=== PATIENT | male | born 1950 | race Caucasian/White ===

== ENCOUNTER 2016-09-21 19:52 | Emergency (ER) | payer MEDICARE, MEDICAID ==
[2016-09-21 21:41] LABS: Hematocrit 28.2 % (35.5-45.6); Hemoglobin 8.8 gm/dl (11.8-15.2); Mean Corpuscular HGB Conc 31 % (32-34); Mean Corpuscular Volume 71 fl (84-94); Platelet Count 207 K/mm3 (140-440); Red Blood Count 3.97 M/mm3 (3.65-5.03)
[2016-09-21 21:44] LABS: Mean Corpuscular Hemoglobin 22 pg (28-32); Red Cell Distribution Width 27.2 % (13.2-15.2)
[2016-09-21 22:03] LABS: Blood Urea Nitrogen 14 mg/dL (9-20); Calcium 8.9 mg/dL (8.4-10.2); Carbon Dioxide 23 mmol/L (22-30); Glucose 122 mg/dL (75-100)
[2016-09-21 22:04] LABS: Chloride 103.5 mmol/L (98-107); Sodium 140 mmol/L (137-145)
[2016-09-21 22:15] LABS: Anion Gap 18 mmol/L
[2016-09-22] MEDS ORDERED: NORCO 5/325 PO ONE (08:49)
--- NOTE | 2016-09-22 08:59 | Emergency Department Report ---
HPI - General Chief Complaint: Medical Clearance Time Seen by Provider: 09/22/16 08:42 - HPI HPI: Room 3 The patient is a 66-year-old male presenting with a chief complaint of right foot pain. Has a history of gout and states for the past 3 days she has had pain in his right foot mostly at the base of the great toe radiating to the dorsum of the foot. Patient denies any preceding trauma. Patient denies any history of fever. The patient was reportedly brought in from outpatient rehabilitation facility by his reinforcing iron worker helper stated that they wanted him as an inpatient at [facility]. The patient states he usually drank approximately one sixpack of beer daily and his last consumption occurred approximately 3 weeks ago. The patient states he simply wants something for his right foot pain and to go home. Patient denies suicidal or homicidal ideation. Patient denies visual or auditory hallucination Location: [see above] Duration: 3 days Quality: Pain Severity: Moderate Modifying factors: [see above] Context: [see above] Mode of transportation: [not driving] ED Past Medical Hx - Past Medical History Previous Medical History?: Yes Hx Hypertension: Yes Hx Psychiatric Treatment: Yes (depression) Additional medical history: alcoholism - Surgical History Past Surgical History?: No - Family History Family history: no significant - Social History Smoking Status: Never Smoker Substance Use Type: Alcohol (6 pack of beer daily. Last consumption 3 weeks ago ) - Medications Home Medications: Home Medications Medication Instructions Recorded Confirmed Last Taken Type HYDROcodone/APAP 5-325 [[place] 1 - 2 each PO Q6HR PRN #14 tablet 09/22/16 Unknown Rx 5/325] Ibuprofen [Motrin 800 MG tab] 800 mg PO Q8HR PRN #20 tablet 09/22/16 Unknown Rx ED Review of Systems ROS: Stated complaint: RT FOOT PAIN, ALCOHOL WITHDRAWALS Other details as noted in HPI Comment: All other systems reviewed and negative Constitutional: denies: chills, fever Eyes: denies: eye pain, eye discharge, vision change ENT: denies: ear pain, throat pain Respiratory: denies: cough, shortness of breath, wheezing Cardiovascular: denies: chest pain, palpitations Endocrine: no symptoms reported Gastrointestinal: denies: abdominal pain, nausea, diarrhea Genitourinary: denies: urgency, dysuria Musculoskeletal: arthralgia Skin: denies: rash, lesions Neurological: denies: headache, weakness, paresthesias Psychiatric: denies: anxiety, depression Hematological/Lymphatic: denies: easy bleeding, easy bruising Physical Exam - Physical Exam Vital Signs: Vital Signs 09/21/16 09/22/16 09/22/16 20:40 08:42 08:44 Temperature 97.5 F L Pulse Rate 100 H 78 Respiratory 20 20 20 Rate Blood Pressure 123/70 127/70 [Right] O2 Sat by Pulse 100 98 98 Oximetry Physical Exam: GENERAL: The patient is well-developed well-nourished male lying on stretcher not appearing to be in acute distress. [] HEENT: Normocephalic. Atraumatic. Extraocular motions are intact. Patient has moist mucous membranes. NECK: Supple. No meningitic signs are noted. There is no adenopathy noted. CHEST/LUNGS: Clear to auscultation. There is no respiratory distress noted. HEART/CARDIOVASCULAR: Regular. There is no tachycardia. There is no gallop rub or murmur. ABDOMEN: Abdomen is soft, nontender. Patient has normal bowel sounds. There is no abdominal distention. SKIN: There is no rash. There is no edema. There is no diaphoresis. NEURO: The patient is awake, alert, and oriented. The patient is cooperative. There is no tremulousness noted. The patient has normal speech MUSCULOSKELETAL: There is no evidence of acute injury. ED Course Vital Signs 09/21/16 09/22/16 09/22/16 20:40 08:42 08:44 Temperature 97.5 F L Pulse Rate 100 H 78 Respiratory 20 20 20 Rate Blood Pressure 123/70 127/70 [Right] O2 Sat by Pulse 100 98 98 Oximetry - Reevaluation(s) Reevaluation #1: 09/22/16 11:16 Patient stated he does not wish to seek inpatient alcohol detox. center consultant states patient does not meet inpatient criteria and recommends he follows up with his reinforcing iron worker helper ED Medical Decision Making - Lab Data Result diagrams: 09/21/16 21:20 09/21/16 21:20 Laboratory Tests 09/21/16 09/21/16 21:20 21:20 WBC 10.0 RBC 3.97 Hgb 8.8 L Hct 28.2 L MCV 71 L MCH 22 L MCHC 31 L RDW 27.2 H Plt Count 207 Sodium 140 Potassium 4.0 Chloride 103.5 Carbon Dioxide 23 Anion Gap 18 BUN 14 Creatinine 1.0 Estimated GFR > 60 BUN/Creatinine Ratio 14.00 Glucose 122 H Calcium 8.9 - Radiology Data Radiology results: image reviewed (right foot x-ray) interpreted by me: Right foot x-ray-no definite fractures. No foreign body seen - Differential Diagnosis gout, alcoholism Critical care attestation.: If time is entered above; I have spent that time in minutes in the direct care of this critically ill patient, excluding procedure time. ED Disposition Clinical Impression: Gout, Alcoholism Disposition: DISCHARGED TO HOME OR SELFCARE Is pt being admited?: No Does the pt Need Aspirin: No Condition: Stable Instructions: Acute Gouty Arthritis (ED) Additional Instructions: Return to the emergency department immediately should you develop worsening symptoms, fever, inability to tolerate food or liquid or any other concerns. Prescriptions: HYDROcodone/APAP 5-325 [[place] 5/325] 1 - 2 each PO Q6HR PRN #14 tablet PRN Reason: Pain Ibuprofen [Motrin 800 MG tab] 800 mg PO Q8HR PRN #20 tablet PRN Reason: Pain Referrals: PRIMARY CARE, [Primary Care Provider] - 3-5 Days PAULINA BOUCHER MD [Staff Physician] - 3-5 Days (Dr Boucher is an orthopedic surgeon. Please follow up with him for further evaluation) Time of Disposition: 11:16
[2016-09-22 10:03] LABS: Urine Drugs of Abuse Note Disclamer
[2016-09-22 10:30] LABS: Bilirubin,Urine NEG (Negative); Blood,Urine NEG (Negative); Ketones,Urine NEG (Negative); Leukocyte Esterase,Urine LG (Negative); Mucus,Urine 3+ /HPF; Nitrite,Urine POS (Negative); Urobilinogen,Urine < 2.0 mg/dL (<2.0)
[2016-09-22 10:32] LABS: WBC,Urine > 182.0 /HPF (0.0-6.0)
--- NOTE | 2016-09-22 10:51 | XRay Report ---
RIGHT FOOT, 2 VIEWS: HISTORY: Right foot pain. FINDINGS: There is mild diffuse soft tissue swelling. Bone mineralization is borderline. There are moderate osteoarthritic changes at the first metatarsophalangeal joint. Mild degenerative changes in the midfoot. No fracture, malalignment or bony erosions. Small plantar spur. IMPRESSION: Soft tissue swelling. Degenerative findings, as described. No acute process.
[2016-09-22 11:20] VITALS: BP 151/71
[2016-09-22] MEDS ORDERED: MOTRIN ONE (12:12)
[2016-09-22] MEDS ORDERED: MOTRIN PO ONE (12:23)
== END 2016-09-22 12:27 | disposition home or self-care (01) ==
LOC: ED 19:52
DX: M10.9 Gout, unspecified (principal); F10.20 Alcohol dependence, uncomplicated; I10 Essential (primary) hypertension; F32.9 Major depressive disorder, single episode, unspecified
CPT/HCPCS: 36415; 80048; 80307; 81001; 85027; 99284

== ENCOUNTER 2017-03-08 18:29 | Emergency (ER) | payer MEDICARE, MEDICAID ==
--- NOTE | 2017-03-09 02:46 | Emergency Department Report ---
HPI - General Chief Complaint: Extremity Injury, Upper Time Seen by Provider: 03/09/17 02:27 - HPI HPI: Room 6 The patient is a 66-year-old male presenting with a chief complaint of left arm pain. Patient states his symptoms began yesterday with pain in the left tricep. Patient denies any preceding trauma. Patient denies chest pain, shortness of breath nausea or vomiting. Patient admits to consuming alcohol. The patient's alcohol level in the ED is 0.31 Location: Left arm Duration: One day Quality: Pain Severity: Moderate Modifying factors: Movement increases pain Context: [see above] Mode of transportation: [not driving] ED Past Medical Hx - Past Medical History Hx Hypertension: Yes Hx Psychiatric Treatment: Yes (depression) Additional medical history: alcoholism - Surgical History Past Surgical History?: No - Family History Family history: no significant - Social History Smoking Status: Current Every Day Smoker Substance Use Type: None (denies illicit drug use), Alcohol - Medications Home Medications: Home Medications Medication Instructions Recorded Confirmed Last Taken Type HYDROcodone/APAP 5-325 [[place] 1 - 2 each PO Q6HR PRN #14 tablet 09/22/16 Unknown Rx 5/325] Ibuprofen [Motrin 800 MG tab] 800 mg PO Q8HR PRN #20 tablet 09/22/16 Unknown Rx Ibuprofen [Motrin 800 MG tab] 800 mg PO Q8HR PRN #20 tablet 03/09/17 Unknown Rx traMADol [Ultram] 50 mg PO Q6HR PRN #14 tablet 03/09/17 Unknown Rx ED Review of Systems ROS: Stated complaint: INTOXICATION Other details as noted in HPI Comment: All other systems reviewed and negative Constitutional: denies: chills, fever Eyes: denies: eye pain, eye discharge, vision change ENT: denies: ear pain, throat pain Respiratory: denies: cough, shortness of breath, wheezing Cardiovascular: denies: chest pain, palpitations Endocrine: no symptoms reported Gastrointestinal: denies: abdominal pain, nausea, diarrhea Genitourinary: denies: urgency, dysuria Musculoskeletal: myalgia Skin: denies: rash, lesions Neurological: denies: headache, weakness, paresthesias Psychiatric: denies: anxiety, depression Hematological/Lymphatic: denies: easy bleeding, easy bruising Physical Exam - Physical Exam Vital Signs: Vital Signs 03/08/17 03/09/17 19:18 00:41 Temperature 97.8 F 98.2 F Pulse Rate 92 H 83 Respiratory 16 14 Rate Blood Pressure 155/83 Blood Pressure 140/85 [Left] O2 Sat by Pulse 96 97 Oximetry Physical Exam: GENERAL: The patient is well-developed well-nourished male sleeping on stretcher not appearing to be in acute distress. [] HEENT: Normocephalic. Atraumatic. Extraocular motions are intact. Patient has moist mucous membranes. NECK: Supple. Trachea midline CHEST/LUNGS: Clear to auscultation. There is no respiratory distress noted. HEART/CARDIOVASCULAR: Regular. There is no tachycardia. There is no gallop rub or murmur. 2+ radial pulse on the left ABDOMEN: Abdomen is soft, nontender. Patient has normal bowel sounds. There is no abdominal distention. SKIN: There is no rash. There is no edema. There is no diaphoresis. NEURO: The patient is awake, alert, and oriented. The patient is cooperative. The patient has no focal neurologic deficits. The patient has normal speech. Left cheese factory worker 5+/5 MUSCULOSKELETAL: There is tenderness to palpation of the left tricep. There is limitation of range of motion of the left shoulder. There is no evidence of acute injury. ED Course Vital Signs 03/08/17 03/09/17 19:18 00:41 Temperature 97.8 F 98.2 F Pulse Rate 92 H 83 Respiratory 16 14 Rate Blood Pressure 155/83 Blood Pressure 140/85 [Left] O2 Sat by Pulse 96 97 Oximetry ED Medical Decision Making - Lab Data Result diagrams: 03/09/17 03:27 Laboratory Tests 03/08/17 03/09/17 03/09/17 19:29 03:27 03:27 WBC 8.7 RBC 4.59 Hgb 9.6 L Hct 32.0 L MCV 70 L MCH 21 L MCHC 30 L RDW 27.9 H Plt Count 257 Add Manual Diff Complete Total Counted 100 Seg Neuts % (Manual) 48.0 Band Neutrophils % 0 Lymphocytes % (Manual) 41.0 H Reactive Lymphs % (Man) 0 Monocytes % (Manual) 9.0 H Eosinophils % (Manual) 0 Basophils % (Manual) 0 Metamyelocytes % 1.0 Myelocytes % 1.0 Promyelocytes % 0 Blast Cells % 0 Nucleated RBC % Not Reportable Seg Neutrophils # Man 4.2 Band Neutrophils # 0.0 Lymphocytes # (Manual) 3.6 Abs React Lymphs (Man) 0.0 Monocytes # (Manual) 0.8 Eosinophils # (Manual) 0.0 Basophils # (Manual) 0.0 Metamyelocytes # 0.1 Myelocytes # 0.1 Promyelocytes # 0.0 Blast Cells # 0.0 WBC Morphology Not Reportable Hypersegmented Neuts Not Reportable Hyposegmented Neuts Not Reportable Hypogranular Neuts Not Reportable Smudge Cells Not Reportable Toxic Granulation Not Reportable Toxic Vacuolation Not Reportable Dohle Bodies Not Reportable Pelger-Huet Anomaly Not Reportable Praveen Rods Not Reportable Platelet Estimate Consistent w auto Clumped Platelets Not Reportable Plt Clumps, EDTA Not Reportable Large Platelets Not Reportable Giant Platelets Not Reportable Platelet Satelliting Not Reportable Plt Morphology Comment Not Reportable RBC Morphology Not Reportable Dimorphic RBCs Not Reportable Polychromasia Not Reportable Hypochromasia 2+ Poikilocytosis Not Reportable Anisocytosis 3+ Microcytosis 1+ Macrocytosis Not Reportable Spherocytes Not Reportable Pappenheimer Bodies Not Reportable Sickle Cells Not Reportable Target Cells 1+ Tear Drop Cells Not Reportable Ovalocytes Not Reportable Helmet Cells Not Reportable Jordan-Bellaire Bodies Not Reportable [place] Rings Not Reportable Alexandra Cells Not Reportable Bite Cells Not Reportable Crenated Cell Not Reportable Elliptocytes Not Reportable Acanthocytes (Spur) Not Reportable Rouleaux Not Reportable Hemoglobin C Crystals Not Reportable Schistocytes Not Reportable Malaria parasites Not Reportable Carlos Bodies Not Reportable Hem Pathologist Commnt No Total Creatine Kinase 610 H CK-MB (CK-2) 2.7 CK-MB (CK-2) Rel Index 0.4 Troponin T 0.022 Plasma/Serum Alcohol 0.31 H - EKG Data -: EKG Interpreted by Me EKG shows normal: sinus rhythm Rate: normal - EKG Data When compared to previous EKG there are: previous EKG unavailable Interpretation: other (no ischemic changes seen) - Radiology Data Radiology results: image reviewed (left humerus x-ray, left forearm x-ray) interpreted by me: Left humerus x-ray-no acute fracture Left forearm x-ray-no acute fracture - Differential Diagnosis rotator cuff injury, humerus fracture, alcoholism, ACS Critical care attestation.: If time is entered above; I have spent that time in minutes in the direct care of this critically ill patient, excluding procedure time. ED Disposition Clinical Impression: Left arm pain, Alcohol intoxication Disposition: TO HOME OR SELFCARE Is pt being admited?: No Does the pt Need Aspirin: No Condition: Stable Instructions: Rotator Cuff Injury (ED) Additional Instructions: Return to the emergency department immediately should you develop worsening symptoms, fever, inability to tolerate food or liquid or any other concerns. Prescriptions: Ibuprofen [Motrin 800 MG tab] 800 mg PO Q8HR PRN #20 tablet PRN Reason: Pain traMADol [Ultram] 50 mg PO Q6HR PRN #14 tablet PRN Reason: Pain Referrals: PRIMARY CARE, [Primary Care Provider] - 3-5 Days TORRES GE MD [Staff Physician] - 3-5 Days (Dr. Ge is an orthopedic surgeon. Please follow up with him for further evaluation) Time of Disposition: 05:39 (d/c to family or when etoh < 0.08)
[2017-03-09 02:48] VITALS: BP 142/80
[2017-03-09] MEDS ORDERED: VITAMIN B-1 100 MG, FOLVITE 1 MG, INFUVITE 10 ML, MAGNESIUM SULFATE 2 GM in NACL 0.9% 1... IV ONE (02:48)
[2017-03-09 04:01] LABS: Mean Corpuscular HGB Conc 30 % (32-34); Platelet Count 257 K/mm3 (140-440); Red Blood Count 4.59 M/mm3 (3.65-5.03); White Blood Count 8.7 K/mm3 (4.5-11.0)
[2017-03-09 04:30] LABS: Mean Corpuscular Hemoglobin 21 pg (28-32); Mean Corpuscular Volume 70 fl (84-94); Red Cell Distribution Width 27.9 % (13.2-15.2)
[2017-03-09 04:31] LABS: Hemoglobin 9.6 gm/dl (11.8-15.2)
[2017-03-09 05:10] LABS: Blastocytes % (Manual) 0 %
[2017-03-09 05:11] LABS: Anisocytosis 3+; Basophils % (Manual) 0 % (0.0-1.8); Eosinophils % (Manual) 0 % (0.0-4.3); Hypochromasia 2+; Microcytosis 1+
[2017-03-09 05:14] LABS: Diff Status Complete; Platelet Estimate Consistent w Auto; Target Cells 1+
[2017-03-09 05:16] LABS: Creatine Kinase MB 2.7 ng/mL (0.0-4.0)
--- NOTE | 2017-03-09 08:47 | XRay Report ---
LEFT FOREARM: History: Left arm pain after fall. Slightly limited nonstandard views. There is no evidence for fracture or dislocation. Mild osteopenia is suspected. No joint pathology is identified. Anterior soft tissue swelling is suspected. IMPRESSION: Soft tissue swelling. Osteopenia. No acute bony injury is appreciated.
--- NOTE | 2017-03-09 08:48 | XRay Report ---
LEFT HUMERUS: History: Left arm pain after fall. Slightly limited nonstandard views. Osteopenia is suspected. No obvious bony abnormality or acute injury. The soft tissues are unremarkable. IMPRESSION: Osteopenia. No acute osseous injury detected.
== END 2017-03-09 07:35 | disposition home or self-care (01) ==
LOC: ED 18:29
DX: M79.602 Pain in left arm (principal); F10.120 Alcohol abuse with intoxication, uncomplicated; I10 Essential (primary) hypertension; F32.9 Major depressive disorder, single episode, unspecified; F17.210 Nicotine dependence, cigarettes, uncomplicated
CPT/HCPCS: 36415; 73060; 73090; 82550; 82553; 84484; 85007; 85025; 93005; 93010; 96365; 96366; 99285; G0480; J3411; J3475; J7030; 80320

== ENCOUNTER 2017-08-03 10:23 | Outpatient (CLI) | payer MEDICARE ==
[2017-08-03 11:22] LABS: Hematocrit 35.9 % (35.5-45.6); Hemoglobin 10.9 gm/dl (11.8-15.2); Mean Corpuscular HGB Conc 30 % (32-34); Mean Corpuscular Hemoglobin 22 pg (28-32); Mean Corpuscular Volume 72 fl (84-94); Platelet Count 252 K/mm3 (140-440); Red Blood Count 4.98 M/mm3 (3.65-5.03); Red Cell Distribution Width 25.6 % (13.2-15.2); White Blood Count 6.3 K/mm3 (4.5-11.0)
[2017-08-03 11:40] LABS: Bacteria,Urine 1+ /HPF (Negative); Bilirubin,Urine NEG (Negative); Blood,Urine NEG (Negative); Ketones,Urine NEG (Negative); Leukocyte Esterase,Urine MOD (Negative); Mucus,Urine 2+ /HPF; Nitrite,Urine POS (Negative); Urobilinogen,Urine < 2.0 mg/dL (<2.0)
[2017-08-03 11:54] LABS: Alanine Aminotransferase 13 units/L (7-56); Albumin 3.9 g/dL (3.9-5); Albumin/Globulin Ratio 1.1 %; Alkaline Phosphatase 65 units/L (35-129); Anion Gap 21 mmol/L; BUN/Creatinine Ratio 14; Blood Urea Nitrogen 15 mg/dL (9-20); Calcium 8.9 mg/dL (8.4-10.2); Carbon Dioxide 22 mmol/L (22-30); Chloride 98.1 mmol/L (98-107); Cholesterol 192 mg/dL (50-199); Glucose 106 mg/dL (75-100); HDL Cholesterol 65 mg/dL (40-59); LDL Cholesterol,Direct 98 mg/dL (50-130); Potassium 3.8 mmol/L (3.6-5.0); Sodium 137 mmol/L (137-145); Total Protein 7.3 g/dL (6.3-8.2); Triglycerides 145 mg/dL (2-149)
[2017-08-03 12:00] LABS: Prostate Specific Antigen 3.64 ng/mL (0.00-4.00)
[2017-08-03 12:06] LABS: HIV-1 Antigen p24 Non React (Non React); HIVR-1/2 Ab Non React (Non React)
[2017-08-03 12:35] LABS: Basophils % (Manual) 0 % (0.0-1.8); Blastocytes % (Manual) 0 %; Eosinophils % (Manual) 0 % (0.0-4.3)
[2017-08-03 12:36] LABS: Anisocytosis 2+; Hypochromasia 2+; Polychromasia Few; Target Cells Few; Tear Drop Cells Rare
[2017-08-03 12:37] LABS: Diff Status Complete; Ovalocytes Few; Poikilocytosis 1+
[2017-08-16 13:26] LABS: Vitamin D, 25-OH, Total 10 ng/mL (30-100)
== END 2017-08-03 10:24 | disposition home or self-care (01) ==
LOC: LAB 10:23
DX: Z11.3 Encounter for screening for infections with a predominantly sexual mode of transmission (principal); M10.9 Gout, unspecified; F32.9 Major depressive disorder, single episode, unspecified; N50.89 Other specified disorders of the male genital organs; E55.9 Vitamin D deficiency, unspecified; R63.5 Abnormal weight gain; H15.89 Other disorders of sclera; Z68.30 Body mass index [BMI] 30.0-30.9, adult; Z79.899 Other long term (current) drug therapy
CPT/HCPCS: 36415; 80053; 80061; 80074; 81001; 82306; 82607; 82728; 82747; 84153; 84439; 84443; 85007; 85025; 86592; 87529; 87591; 87806

== ENCOUNTER 2017-10-13 09:38 | Outpatient (CLI) | payer MEDICARE ==
--- NOTE | 2017-10-13 14:55 | Ultrasound Report ---
ULTRASOUND TESTICULAR DOPPLER COMPLETE History: Inflammatory disorder male organs. Technique: Trans-scrotal ultrasound with spectral doppler interrogation. Findings: There is mild nonspecific scrotal skin thickening on the right side. No abscess or soft tissue gas is detected. Both testes and epididymides are normal size, contour and echotexture. No hydrocele or varicocele. No mass or pathologic calcifications. Doppler interrogation depicts symmetric arterial flow to both testes. IMPRESSION: Right scrotal skin thickening of uncertain etiology. This may represent a cellulitis. No abscess is visualized. Please correlate with the patient's clinical presentation. Testes and epididymides are within normal limits.
--- NOTE | 2017-10-13 15:00 | Cat Scan Report ---
CT ABDOMEN PELVIS WITHOUT CONTRAST: HISTORY: Inflammatory disorders of marrow organs. COMPARISON: none. TECHNIQUE: Helical CT in 1.25mm intervals without IV contrast. Sagittal and coronal reconstructions. FINDINGS: Lung bases: Normal. Liver: Normal. Biliary system: Normal. Pancreas: There are a few scattered calcifications in the pancreatic head consistent with mild chronic pancreatitis. The remainder of the pancreas is within normal limits. Spleen: Normal. Kidneys/ureters/bladder: Both kidneys are normal size, contour and position. A 1 cm calcification is identified in the mid left kidney. This appears to represent wall calcifications are associated with a small cyst. No definite nephrolithiasis. No mass. The ureters and bladder are unremarkable. Adrenal glands: 2 cm low density left adrenal mass is identified consistent with an adenoma. The right adrenal gland is normal. Aorta: Mild calcifications. No aneurysm. Intestines: There is a large right inguinal hernia containing multiple distal small bowel loops, ileocecal valve, appendix and cecum. The hernia sac measures up to 10 cm in diameter. There is no evidence for inflammation or bowel obstruction. The remaining bowel loops are unremarkable given no oral contrast was administered. Appendix: Normal. Moderate thoracolumbar spondylosis is noted. No fracture or suspicious bony lesion Ascites: None. Adenopathy: None. Musculoskeletal: Normal. IMPRESSION: Large right inguinal hernia containing multiple small bowel loops. No evidence for obstruction or inflammation. Oddly, this large hernia was not identified on ultrasound performed same day. Mild chronic pancreatitis findings. Probable calcified left renal cyst.
== END 2017-10-13 09:39 | disposition home or self-care (01) ==
LOC: US 09:38
PROVIDERS: ATTEND Urology
DX: N49.8 Inflammatory disorders of other specified male genital organs (principal); K86.1 Other chronic pancreatitis; K40.90 Unilateral inguinal hernia, without obstruction or gangrene, not specified as recurrent; N28.89 Other specified disorders of kidney and ureter; E27.8 Other specified disorders of adrenal gland; M47.895 Other spondylosis, thoracolumbar region
CPT/HCPCS: 74176; 93975

== ENCOUNTER 2017-11-03 09:06 | Day surgery (SDC) | payer MEDICARE ==
[2017-11-03] MEDS ORDERED: NACL 0.9% 1000 ML 1,000 ML IV SCH (10:00)
[2017-11-03] MEDS ORDERED: DIPRIVAN 10 MG/ML IV ONE ×2 (11:28)
[2017-11-03] MEDS ORDERED: WATER FOR IRRIG STERILE ONE (11:29)
[2017-11-03] MEDS ORDERED: WATER FOR IRRIG STERILE IR ONE (11:29)
[2017-11-03] MEDS ORDERED: ZOFRAN ONE (11:30)
--- NOTE | 2017-11-03 11:57 | Post Operative Note ---
Pre-op diagnosis: screening colonoscopy Post-op diagnosis: other (multiple polyps (largest ~4 cm) removed, diverticulosis) Findings: Multiple colon polyps removed, diverticulosis, hemorrhoids Procedure: Colonoscopy with hot snare polypectomy Anesthesia: MAC Surgeon: TIFFANY SAUCEDO Estimated blood loss: minimal Pathology: list (Jar A - cecal polyp, Jar B - proximal sigmoid polyp, Jar C - distal sigmoid polyp) Specimen disposition: to lab Condition: stable Disposition: same day
--- NOTE | 2017-11-03 12:04 | Operative Report ---
Operative Report Operative Report: Colonoscopy Procedure Note with Snare Polypectomy Date of procedure: 11/03/2017 Pre-op diagnosis/indication: screening colonoscopy Post-op diagnosis: Multiple colon polyps (3) removed, diverticulosis, hemorrhoids MEDICATIONS: MAC COMPLICATIONS: No immediate complications ESTIMATED BLOOD LOSS: minimal DESCRIPTION OF PROCEDURE: After consent was obtained, the patient was placed in the left lateral decubitis position. The fujinon colonoscope was inserted into the rectum under direct vision, and advanced to the cecum without difficulty. The quality of prep was fair. The patient tolerated the procedure well. The patient's vital signs were monitored continuously throughout the procedure. FINDINGS: There was an ~ 8-10 mm sessile polyp in the cecum. The polyp was removed with hot snare polypectomy and retrieved. There was an ~4-5 cm pedunculated polyp in the proximal sigmoid colon. The polyp was completely removed piecemeal with hot snare polypectomy and retrieved. There was an ~6 mm sessile polyp in the distal sigmoid colon, removed with hot snare polypectomy and retrieved. Scattered diverticula in the colon. Internal hemorrhoids were seen on retroflexion view. IMPRESSION: 1. Multiple polyps removed (largest 4-5 cm polyp in sigmoid) with hot snare polypectomy as above. 2. Diverticulosis 3. Internal hemorrhoids RECOMMENDATIONS: -follow-up pathology -avoid all nsaid's for 5-7 days -high fiber diet daily -surveillance colonoscopy in 1-2 years (given piecemeal resection and prep)
--- NOTE | 2017-11-03 12:06 | Anesthesia Consultation ---
Anesthesia Consult and Med Hx Date of service: 11/03/17 - Airway Anesthetic Teeth Evaluation: Poor ROM Head & Neck: Adequate Mental/Hyoid Distance: Adequate Mallampati Class: Class II Intubation Access Assessment: Probably Good - Pulmonary Exam CTA: Yes - Cardiac Exam Cardiac Exam: RRR - Pre-Operative Health Status ASA Pre-Surgery Classification: ASA3 Proposed Anesthetic Plan: MAC - Pulmonary Hx Smoking: Yes - Cardiovascular System Hx Hypertension: Yes - Central Nervous System CVA: Yes - Other Systems Hx Alcohol Use: Yes
--- NOTE | 2017-11-03 12:07 | Anesthesia Day of Surgery ---
Anesthesia Day of Surgery - Day of Surgery Patient Examined: Yes Patient H&P Reviewed: Yes Patient is NPO: Yes
[2017-11-03 12:31] VITALS: BP 123/63
== END 2017-11-03 09:07 | disposition home or self-care (01) ==
LOC: GIO 09:06
PROVIDERS: ATTEND Internal Medicine Gastroenterology
DX: Z12.11 Encounter for screening for malignant neoplasm of colon (principal); D12.0 Benign neoplasm of cecum; D12.5 Benign neoplasm of sigmoid colon; K64.8 Other hemorrhoids; K57.30 Diverticulosis of large intestine without perforation or abscess without bleeding; M10.9 Gout, unspecified; I10 Essential (primary) hypertension; F41.9 Anxiety disorder, unspecified; F17.200 Nicotine dependence, unspecified, uncomplicated; Z86.73 Personal history of transient ischemic attack (TIA), and cerebral infarction without residual deficits
CPT/HCPCS: 45385; 88305; J2704; J2405

== ENCOUNTER 2017-12-13 05:42 | Day surgery (SDC) | payer MEDICARE ==
[2017-12-13] MEDS ORDERED: NACL BACTERIOSTATIC INFILTRATI ONE (06:25)
[2017-12-13] MEDS ORDERED: MARCAINE 0.25% INFILTRATI ONE (07:48)
[2017-12-13] MEDS ORDERED: ANCEF/STERILE WATER 2 GM/20 ML IV NR (08:00)
[2017-12-13] MEDS ORDERED: LACTATED RINGERS 1,000 ML IV SCH (08:00)
[2017-12-13] MEDS ORDERED: VERSED IV NR (08:00)
[2017-12-13] MEDS ORDERED: SUBLIMAZE ONE (08:04)
[2017-12-13] MEDS ORDERED: DIPRIVAN 10 MG/ML IV ONE (08:04)
[2017-12-13] MEDS ORDERED: VERSED ONE (08:05)
[2017-12-13] MEDS ORDERED: NEOSPORIN GU IR ONE ×2 (09:16→10:07)
[2017-12-13] MEDS ORDERED: XYLOCAINE MPF 2% ONE (09:53)
[2017-12-13] MEDS ORDERED: NEO SYNEPHRINE/NS Syringe(OR USE) IV ONE (09:53)
[2017-12-13] MEDS ORDERED: ROBINUL ONE (09:54)
[2017-12-13] MEDS ORDERED: NEOSTIGMINE ONE (09:54)
[2017-12-13] MEDS ORDERED: ZEMURON IV ONE (09:55)
[2017-12-13] MEDS ORDERED: NACL 0.9% IR ONE (10:07)
[2017-12-13] MEDS ORDERED: ZOFRAN IV PRN (10:22)
[2017-12-13] MEDS: DILAUDID IV PRN ×4 (10:32→11:05)
[2017-12-13] MEDS ORDERED: DILAUDID ONE (10:33)
--- NOTE | 2017-12-13 11:16 | Anesthesia Day of Surgery ---
Anesthesia Day of Surgery - Day of Surgery Patient Examined: Yes Patient H&P Reviewed: Yes Patient is NPO: Yes
--- NOTE | 2017-12-13 11:17 | Post Anesthesia Evaluation ---
- Post Anesthesia Evaluation Patient Participated: Yes Airway Patent: Yes Stable Respiratory Function: Yes Nausea/Vomiting: No Temp > 96.8F: Yes Pain Manageable: Yes Adequeate Hydration: Yes Anesthesia Complications: No
--- NOTE | 2017-12-13 11:17 | Anesthesia Consultation ---
Anesthesia Consult and Med Hx Date of service: 12/13/17 - Airway Anesthetic Teeth Evaluation: Poor ROM Head & Neck: Adequate Mental/Hyoid Distance: Adequate Mallampati Class: Class I Intubation Access Assessment: Probably Good - Pulmonary Exam CTA: Yes - Cardiac Exam Cardiac Exam: RRR - Pre-Operative Health Status ASA Pre-Surgery Classification: ASA3 Proposed Anesthetic Plan: General - Pulmonary Hx Smoking: Yes (CURRENT SMOKER CIGARETTS & CIGARS) Hx Sleep Apnea: No (S[place]THAK PRE SCREEN HIGH RISK) - Cardiovascular System Hx Hypertension: Yes Hx Heart Attack/AMI: No Hx Angina: Yes - Central Nervous System 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
[2017-12-13] MEDS ORDERED: DILAUDID IV PRN (11:24)
--- NOTE | 2017-12-13 11:49 | Post Operative Note ---
Date of procedure: 12/13/17 Pre-op diagnosis: huge RIH slider Post-op diagnosis: same Findings: as above Procedure: rih repair adhesions to cord Anesthesia: CHRISTALA Surgeon: MARIBEL WILLIS Crochet Beader: MIR JAVIER Estimated blood loss: minimal Pathology: none Condition: stable Disposition: PACU
--- NOTE | 2017-12-13 11:51 | Discharge Summary ---
Short Stay Discharge Plan Activity: other (no straining) Weight Bearing Status: Partial Weight Bearing Diet: low fat, low cholesterol, low salt Wound: open to air (remove drerssing in 2 days ), keep clean and dry Special Instructions: other (ice x 24 hrs ) Follow up with: SEVERO MAY MD [Primary Care Provider] - 7 Days MARIBEL WILLIS MD [Staff Physician] - 10 Days
[2017-12-13 15:38] VITALS: BP 153/83
--- NOTE | 2017-12-13 19:12 | Operative Report ---
PREOPERATIVE DIAGNOSIS: Huge sliding right inguinal hernia with bowel and severe adhesions. POSTOPERATIVE DIAGNOSIS: Huge sliding right inguinal hernia with bowel and severe adhesions. PROCEDURE: Right inguinal hernia repair with plug and mesh. SURGEON: Dr. Bower, and Dr. Cleveland. ANESTHESIA: General. FINDINGS: A gentleman with a huge mass in the right hemiscrotum. He had intermittent pain. It was adherent to the scrotum, could not be reduced, and his testis was dependent medially and tender. He now presents for treatment. DESCRIPTION OF PROCEDURE: The patient was brought to the operating room and placed on the operating table. Following induction of anesthesia, placed over the ____ table, prepped and draped in usual sterile fashion. An oblique incision was made over the external ring and carried down through thickened fatty tissue. ____ was very deep. The aponeurosis was mobilized and a 3.5 cm opening in the external ring was noted with this hernia. We opened the external oblique aponeurosis and developed a plane on both sides of this hernia. We were able to get a [place] around it. We could not dissect the cord initially because it so much thickened and so much tension with this huge mass extending down to the dependent portion of the scrotum at least 17-18 cm. At this point, we opened up the surrounding fascia. Once we immobilized the cord and had the [place] over until we got down to the sac. The sac was not opened and we were able to reduce the entire contents once we mobilized it off of the floor of the scrotum. The testis and the cord vessels with the vas were preserved with meticulous dissection. We did not have to do an orchiectomy. The cord vessels away lateral, but we had to be dissected off this mass with lots of adhesions. The vas was also medial and dissected free of the adhesions. Once we reduced everything, we placed a plug, secured it to the surrounding fascial tissue and then placed a keyhole mesh and circumferentially, not too tight, recreating a new internal ring. Wound was copiously irrigated throughout the procedure with antibiotic solution. External oblique aponeurosis approximated with a 2-0 Vicryl, superficial fascia with 3-0 Vicryl, skin with clips. The patient tolerated the procedure well. Minimal blood loss. Brought to recovery room in stable condition. [facility]# [id number] CAYETANO/KERON
== END 2017-12-13 12:36 | disposition home or self-care (01) ==
LOC: OR 05:42
PROVIDERS: ATTEND Urology
DX: K40.90 Unilateral inguinal hernia, without obstruction or gangrene, not specified as recurrent (principal); I10 Essential (primary) hypertension; I69.998 Other sequelae following unspecified cerebrovascular disease; F17.210 Nicotine dependence, cigarettes, uncomplicated
CPT/HCPCS: 49525; J0690; J1170; J2250; J2370; J2704; J2710; J3010; J7120; C1781